=== PATIENT | female | born 1950 | race Caucasian/White ===

== ENCOUNTER → 2017-01-28 | Outpatient (CLI) | payer OTHER | LOC: FIMAGING 15:50 | PROVIDERS: ATTEND Family Medicine | DX: Z12.31 Encounter for screening mammogram for malignant neoplasm of breast (principal); Z85.43 Personal history of malignant neoplasm of ovary | CPT/HCPCS: G0202 ==

== ENCOUNTER → 2017-06-11 | Outpatient (CLI) | payer OTHER | LOC: FIMAGING 13:05 | PROVIDERS: ATTEND Family Medicine | DX: Z13.820 Encounter for screening for osteoporosis (principal); M81.0 Age-related osteoporosis without current pathological fracture; Z78.0 Asymptomatic menopausal state; Z85.43 Personal history of malignant neoplasm of ovary; Z82.62 Family history of osteoporosis ==

== ENCOUNTER → 2017-12-24 | Outpatient (CLI) | payer OTHER | LOC: FIMAGING 09:32 | PROVIDERS: ATTEND Family Medicine | DX: N63.10 Unspecified lump in the right breast, unspecified quadrant (principal) ==

== ENCOUNTER → 2018-01-04 | Outpatient (CLI) | payer OTHER ==
[~2018-01-04] MED LIST: BUPIVACAINE 0.5% 30 ML SDV ONE; INDOMETHACIN 50 MG SUPP PR PRN; LIDOCAINE 1% 300 MG/30 ML SDV ONE; NS 500 ML IV SCH; THROMBIN (BOVINE) 5,000 UNIT VIAL TP ONE
--- NOTE | 2018-01-04 13:09 | PDGENHP ---
History & Physical Chief Complaint: duodenal polyp History of Present Illness: 67 year old female presents for surveillance of a duodenal polyp Pertinent Past, Social, Family History: pMHx: HTN Relevant Physical Exam: HEENT: anicteric. CV: RRR +s1s2. lungs: CTAB. Abd: soft, nt, + bs Cardiorespiratory Assessment: ASA 2
== END | disposition home or self-care (01) ==
LOC: FIMAGING 07:17
PROVIDERS: ATTEND Family Medicine
PROC: 0HBT3ZX Excision of Right Breast, Percutaneous Approach, Diagnostic (ICD-10-PCS; principal; 2018-01-04)
DX: C50.911 Malignant neoplasm of unspecified site of right female breast (principal); K31.7 Polyp of stomach and duodenum

== ENCOUNTER → 2018-03-24 | Outpatient (CLI) | payer OTHER | LOC: FIMAGING 15:32 | PROVIDERS: ATTEND Surgery | DX: M79.605 Pain in left leg (principal) ==

== ENCOUNTER → 2018-04-02 | Outpatient (CLI) | payer OTHER | LOC: FIMAGING 12:43 | PROVIDERS: ATTEND Nurse Practitioner | DX: R05 Cough (principal) ==

== ENCOUNTER → 2018-07-06 | Outpatient (CLI) | payer OTHER | LOC: FIMAGING 15:15 | PROVIDERS: ATTEND Nurse Practitioner | DX: R60.9 Edema, unspecified (principal) ==

== ENCOUNTER → 2018-12-29 | Outpatient (CLI) | payer OTHER | LOC: FIMAGING 08:36 ==